=== PATIENT | female | born 1965 | race Caucasian/White ===

== ENCOUNTER 2017-06-20 21:27 | Emergency (ER) | payer MEDICAID ==
[2017-06-20 22:15] LABS: Hematocrit 38.9 % (37.0-47.0); Hemoglobin 12.9 gm/dL (12.5-16.0); Mean Cell Volume 81.9 fl (78-100); Mean Corpuscular Hemoglobin 27.2 pg (27-31); Mean Corpuscular Hgb Conc 33.2 g/dl (32-36); Platelet Count 404 K/mm3 (150-450); Red Blood Count 4.75 M/mm3 (4.2-5.4); Red Cell Distribution Width 12.8 % (11.5-14.0); White Blood Count 11.7 K/mm3 (4.0-10.5)
[2017-06-20 22:16] LABS: Total Cells Counted 100
[2017-06-20 22:19] LABS: Urine Bilirubin Negative (NEGATIVE); Urine Blood Negative /ul (NEGATIVE); Urine Ketone 5 mg/dL (NEGATIVE); Urine Nitrite Negative (NEGATIVE); Urine Protein Negative (NEGATIVE); Urine Specific Gravity >=1.030 SP.GR. (1.005-1.010); Urine Urobilinogen Normal (NORMAL); Urine pH 5.5 pH (5.0-7.0)
[2017-06-20 22:28] LABS: Urine Appearance Clear; Urine Bacteria TRACE; Urine Color Yellow; Urine RBC None Seen /hpf (0-5); Urine WBC TRACE /hpf (0-5)
[2017-06-20 22:30] LABS: Albumin * 3.7 gm/dl (3.4-5.0); Anion Gap 16.4 mmol/L (6.8-13.8); BUN/Creatinine Ratio 21.4 (9.0-21.6); Bilirubin, Total 0.2 mg/dL (0.0-1.1); Ca. Corrected For Albumin 8.8 mg/dL (8.4-10.2); Calcium * 8.9 mg/dL (7.9-10.9); Carbon Dioxide 25.9 mmol/L (24-32.6); Potassium 4.3 mmol/L (3.4-4.6); Total Protein 8.1 gm/dL (6.2-8.2)
[2017-06-20 22:49] LABS: Atypical (Reactive) Lymph 2 % (0-2); Basophil 2 % (0-1); Eosinophil 15 % (0-3); Lymphocyte 40 % (20-51); Monocyte 1 % (0-9); Neutrophil 40 % (42-75); Neutrophil # 4.7 K/mm3 (1.3-6.0)
[2017-06-20 22:52] LABS: Dohle Bodies 1+; Giant Platelets 1+; Macrocytosis 1+; Platelet Estimate Normal (NORMAL); Polychromasia 1+; RBC Morphology Normal (NORMAL)
[2017-06-21] MEDS ORDERED: DIATRIZOATE MEGLUMINE, SODIUM 30 ML BTL PO ONE (00:52)
--- NOTE | 2017-06-21 00:52 | ERNOTE ---
Abdominal HPI - General Chief Complaint: Abdominal Pain Time Seen by Provider: 06/21/17 00:37 Source: patient Exam Limitations: no limitations - Immun/Allergies/Home Medications Immunizatons: IMMUNIZATION HX Immunizations Up to Date Yes History of Influenza Vaccine No Hx Pneumococcal Vaccination No Allergies/Adverse Reactions: Allergies Sulfa (Sulfonamide Antibiotics) Allergy (Verified 06/20/17 22:00) Home Medications: HOME MEDICATIONS Insul NPH Hu Rec/Ins Rg Hu Rec [Novolin 70/30 100U/ml] 30 units SQ BID 06/20/17 [Last Taken Unknown] Lisinopril [Zestril] 2.5 mg PO DAILY 06/20/17 [Last Taken Unknown] metFORMIN HCL [Glucophage] 1,000 mg PO BIDWM 06/20/17 [Last Taken Unknown] sitaGLIPtin PHOSPHATE [Januvia] 100 mg PO DAILY 06/20/17 [Last Taken Unknown] - History of Present Illness Narrative: Pt has had RUQ pain and nausea x 1 week. Nausea worse today Timing: getting worse Quality: moderate Review of Systems - Review of Systems Constitutional: Absent: recent illness EYE: Present: no symptoms reported ENT: Present: no symptoms reported Respiratory: Absent: shortness of breath Cardiology: Absent: chest pain Gastrointestinal/Abdominal: Present: nausea, vomiting. Absent: constipation Genitourinary: Absent: dysuria Musculoskeletal: Present: no symptoms reported Skin: Present: no symptoms reported Neurological: Present: no symptoms reported Endocrine: Present: no symptoms reported Hematologic/Lymphatic: Present: no symptoms reported Psych: Present: no symptoms reported - Patient's Past Medical History Patient History - Medical: Diabetes Type 2 Insulin Dependent, GERD Patient History - Cardiac/Respiratory: No pertinent hx Patient History - Cancer: Cervical Patient History - Surgical Procedures: Cholecystectomy, Patient History - Other: None - Social History Living Situations: home Psych History: No pertinent hx Smoking Status: Former smoker Have you smoked in the past 12 months: No Alcohol Use: none Drug Use: none - Immunizations Immunizations Up to Date: Yes Hx Pneumococcal Vaccination: No History of Influenza Vaccine: No Physical Exam - Physical Exam General Appearance: Present: wd/wn, alert, moderate distress Head Exam: Present: normal inspection, no evidence of injury Ears, Nose, Throat: Present: normal ENT inspection Respiratory: Present: no respiratory distress, no accessory muscle use Gastrointestinal/Abdominal: Present: tenderness - moderate RLQ and mid right side. LLQ mild. Absent: guarding, rebound Back Exam: Present: normal inspection, normal range of motion Extremity Exam: Present: normal inspection, normal range of motion Neurological Exam: Present: alert, oriented, normal mood/affect, no motor/ sensory deficits Skin Exam: Present: normal color, warm/dry ED Progress - Results and Orders Patient's Lab Results:: I have reviewed the patient's lab results. Results and Orders: Laboratory Tests 06/20/17 06/20/17 06/20/17 22:02 22:14 22:14 WBC 11.7 H Hgb 12.9 Hct 38.9 Plt Count 404 Sodium 138 Potassium 4.3 Chloride 100 Carbon Dioxide 25.9 BUN 15 Creatinine 0.70 Est GFR (Non-Af Amer) 94 Random Glucose 196 H Calcium 8.9 Total Bilirubin 0.2 AST 14 ALT 27 Alkaline Phosphatase 90 Total Protein 8.1 Albumin 3.7 Amylase 52 Lipase 198 Urine Color Yellow Urine Appearance Clear Urine pH 5.5 Ur Specific [place] >=1.030 Urine Protein Negative Urine Glucose (UA) Negative Urine Ketones 5 Urine Blood Negative Urine Nitrate Negative Urine Bilirubin Negative Urine Urobilinogen Normal Ur Leukocyte Esterase Negative Urine RBC None seen Urine WBC Trace H Ur Epithelial Cells Trace Urine Bacteria Trace Urine Culture Comments No culture indicated - Vital Signs Vital Signs: Vital Signs 06/20/17 06/21/17 21:55 00:09 Temperature 36.2 C L Pulse Rate 87 90 Respiratory 16 18 Rate Blood Pressure 109/73 107/57 O2 Sat by Pulse 98 98 Oximetry - X-Ray X-Ray #1 X-Ray: abdomen Interpretation: Interp. by me X-ray Comments: mod to severe fecal retention. - CT/Ultrasound CT/Ultrasound Narrative: CT abd pelvis: Fatty liver, biliary duct dilation despite cholecystectomy. severe fecal retention. - Progress/Reassessment Chief Complaint: Abdominal Pain Progress:: Improved Departure - Departure Clinical Impression: Abdominal pain Constipation Qualifiers: Constipation type: slow transit constipation Qualified Code(s): K59.01 - Slow transit constipation Disposition: Home self-care Condition: Fair Instructions: Constipation, Adult, [id number] Additional Instructions: Miralax taken one scoop in 8 ounce water 2-3 times a day will get your bowels moving in 3-4 days. Milk of magnesia taken up to twice a day usually works in 6-12 hours. Magnesium citrate (1/2 a bottle) followed by a full glass of water usually works in 6-8 hours. See your regular doctor if your symptoms do not completely resolve. return to the ER if symptoms are worsening.
[2017-06-21] MEDS ORDERED: DIATRIZOATE MEGLUMINE, SODIUM 30 ML BTL ONE (00:53)
[2017-06-21] MEDS ORDERED: NALBUPHINE HCL 20 MG/ML AMPUL ONE (01:02)
[2017-06-21] MEDS ORDERED: ONDANSETRON HCL/PF 2 MG/ML VIAL ONE ×2 (01:02→06:31)
[2017-06-21] MEDS ORDERED: NALBUPHINE HCL 20 MG/ML AMPUL IV ONE (01:03)
[2017-06-21] MEDS ORDERED: ONDANSETRON HCL/PF 2 MG/ML VIAL IV ONE ×2 (01:03→06:34)
[2017-06-21] MEDS ORDERED: METOCLOPRAMIDE HCL 5 MG/ML VIAL ONE (02:02)
[2017-06-21] MEDS ORDERED: METOCLOPRAMIDE HCL 5 MG/ML VIAL IV ONE (02:03)
[2017-06-21 06:54] VITALS: BP 118/73
== END 2017-06-21 06:41 | disposition home or self-care (01) ==
LOC: ER 21:27
DX: K59.01 Slow transit constipation (principal); R10.11 Right upper quadrant pain; E11.9 Type 2 diabetes mellitus without complications; Z79.4 Long term (current) use of insulin; Z85.41 Personal history of malignant neoplasm of cervix uteri; Z87.891 Personal history of nicotine dependence
CPT/HCPCS: 36415; 74020; 74177; 80053; 81001; 82150; 83690; 85025; 96374; 96375; 99284; J2405